=== PATIENT | female | born 1995 | race Caucasian/White ===

== ENCOUNTER 2017-07-10 02:14 | Inpatient (IN) | payer MEDICAID ==
[2017-07-10] MEDS ORDERED: Ampicillin 2 GM in Sodium Chloride 0.9% 100 ML IV ONE (04:35)
[2017-07-10] MEDS ORDERED: Lactated Ringers 1,000 ML IV ONE ×2 (05:22→05:30)
[2017-07-10] MEDS ORDERED: Bupivacaine 0.75%/D5W 2 ML Amp ISPINAL ONE (05:30)
[2017-07-10] MEDS ORDERED: Oxytocin 10 Units/1 ML SDV IV ONE (05:30)
[2017-07-10] MEDS ORDERED: fentaNYL 100 MCG/2 ML SDV IV ONE (05:30)
[2017-07-10] MEDS ORDERED: Carboprost Tromethamine 250 MCG/1 ML Amp IM ONE (05:30)
[2017-07-10] MEDS ORDERED: Succinylcholine 200 MG/10 ML MDV IV ONE (05:30)
[2017-07-10] MEDS ORDERED: Dexamethasone 4 MG/ML SDV IVPUSH ONE (05:30)
[2017-07-10] MEDS ORDERED: Azithromycin 500 MG Vial ONE (05:30)
[2017-07-10] MEDS ORDERED: fentaNYL 100 MCG/2 ML SDV ITHECAL ONE (05:30)
[2017-07-10] MEDS ORDERED: Sodium Chloride 0.9% 500 ML IV ONE (05:30)
[2017-07-10] MEDS ORDERED: Propofol 200 MG/20 ML SDV IV ONE (05:30)
[2017-07-10] MEDS ORDERED: Sodium Chloride 0.9% 10 ML SDV FLUSH SCH ×2 (05:30→23:45)
[2017-07-10] MEDS ORDERED: Hetastarch in NS 500 ML IV ONE (05:30)
[2017-07-10] MEDS ORDERED: Ondansetron 4 MG/2 ML SDV IVPUSH ONE (05:30)
[2017-07-10] MEDS ORDERED: Morphine 10 MG/ML Syringe IVPUSH ONE (05:30)
[2017-07-10] MEDS ORDERED: Azithromycin 500 MG in Sodium Chloride 0.9% 250 ML IV ONE (05:31)
[2017-07-10] MEDS ORDERED: EPINEPHrine 1:10,000 1 MG/10 ML Syringe ONE (06:12)
[2017-07-10] MEDS ORDERED: Sodium Chloride 0.9% 10 ML Syringe FLUSH ONE (06:12)
[2017-07-10] MEDS ORDERED: Carboprost Tromethamine 250 MCG/1 ML Amp ONE (06:28)
[2017-07-10] MEDS ORDERED: ePHEDrine 50 MG/ML SDV IVPUSH PRN ×2 (07:50→10:18)
[2017-07-10] MEDS ORDERED: Naloxone 0.4 MG/ML SDV IVPUSH PRN ×2 (07:50→10:18)
[2017-07-10] MEDS ORDERED: diphenhydrAMINE 50 MG/ML SDV IVPUSH PRN ×3 (07:50→10:18)
[2017-07-10] MEDS ORDERED: Ondansetron 4 MG/2 ML SDV IV PRN (07:50)
[2017-07-10] MEDS ORDERED: cefOXitin 2 GM in Sodium Chloride 0.9% 100 ML IV SCH (08:15)
--- NOTE | 2017-07-10 08:15 | PCM.OPNOTE ---
- General Post-Op/Procedure Note Date of Surgery/Procedure: 07/10/17 Operative Procedure(s): emergent c section Findings: term infant FRANKY presentation prolapsed cord cord knot Pre Op Diagnosis: cord prolapse with distress Post-Op Diagnosis: same. cord knot. demise of infant Anesthesia Technique: General ET Tube Primary Surgeon: Carlos Chaudhari Anesthesia Provider: Iqra Tompkins Pathology: term infant cord knot and cord prolapse demise of Fluid Replacement, Intraop: 2,800 (hepspan 400, rest crystal ) EBL in mLs: 1,200 Complications: demise of Condition: Good Free Text/Narrative:: see dictation
--- NOTE | 2017-07-10 08:37 | PCM.HP ---
H&P History of Present Illness - General Date of Service: 07/10/17 Admit Problem/Dx: Admission Diagnosis/Problem Admission Diagnosis/Problem complications Source of Information: Patient History Limitations: Reports: No Limitations - History of Present Illness Initial Comments - Free Text/Narative: This is a with a due date of 07/06/17 comes in with spontaneous rupture of membranes with meconium-stained and group B positive. Patient was having D cells that look like they were released. We were not able to leaf size picker her contractions because her body habitus. The we asked her when she had contractions and when they were done and her D cells would stop. She had an intrathecal. We started IV fluids and oxygen. Later she had what appeared to be some decelerations. The nurse checked her she first came in and she was about 8 cm. The nurse checked her when she had the later decelerations and there was a cord prolapse. She was given ampicillin 2 g. - Related Data Allergies/Adverse Reactions: Allergies Allergy/AdvReac Type Severity Reaction Status Date / Time No Known Allergies Allergy Verified 10/16/13 15:55 Home Medications: Home Meds Vits #93/Iron Fum/FA [ Formula Tablet] 1 each PO DAILY [History] Past Medical History Musculoskeletal History: Reports: Back Pain, Chronic Social & Family History - Family History Family Medical History: Noncontributory H&P Review of Systems - Review of Systems: Review Of Systems: See Below General: Reports: No Symptoms HEENT: Reports: No Symptoms Pulmonary: Reports: No Symptoms Cardiovascular: Reports: No Symptoms Gastrointestinal: Reports: Abdominal Pain Genitourinary: Reports: No Symptoms Musculoskeletal: Reports: No Symptoms Skin: Reports: No Symptoms Psychiatric: Reports: No Symptoms Neurological: Reports: No Symptoms Hematologic/Lymphatic: Reports: No Symptoms Immunologic: Reports: No Symptoms Exam - Exam Exam: See Below - Vital Signs Vital Signs: Last Vital Signs Temp 96.7 F 07/10/17 08:00 Pulse 94 07/10/17 07:35 Resp 16 07/10/17 08:05 BP 119/79 07/10/17 08:05 Pulse Ox 100 07/10/17 08:05 - Exam General: Alert, Oriented, Cooperative HEENT: Mucosa Moist & Altha, Posterior Pharynx Clear, TMs Clear Neck: Supple, Trachea Midline Lungs: Clear to Auscultation, Normal Respiratory Effort. No: Crackles, Rales, Rhonchi Cardiovascular: Regular Rate, Regular Rhythm, Normal S1, Normal S2. No: Systolic Murmur, Diastolic Murmur GI/Abdominal Exam: Normal Bowel Sounds, Soft, Other (Nontender but fundal pressure with contractions.) (Female) Exam: Other (Initially 8/70/-2. But at the in the vocal cord prolapse at 8/70/0.) Back Exam: Normal Inspection Extremities: Non-Tender, No Pedal Edema Skin: Warm, Dry, Intact Neuro Extensive - Mental Status: Alert, Oriented x3, Normal Mood/Affect, Normal Cognition, Memory Intact Neuro Extensive - Motor, Sensory, Reflexes: Normal Gait Psychiatric: Alert, Normal Mood *Q Meaningful Use (ADM) - VTE *Q VTE Criteria *Q: - Stroke *Q Stroke Criteria *Q: - AMI *Q AMI Criteria *Q: - Problem List (1) Umbilical cord prolapse in labor and delivery SNOMED Code(s): 998781731 ICD Code: O69.0XX0 - LABOR AND DELIVERY COMPLICATED BY PROLAPSE OF CORD, UNSP Status: Acute Current Visit: Yes Problem List Initiated/Reviewed/Updated: Yes Orders Last 24hrs: Active Orders 24 hr Category Date Time Status Admission Status [Patient Status] [ADT] Routine ADT 07/10/17 03:30 Active Ambulate [RC] PER UNIT ROUTINE Care 07/10/17 07:50 Active Communication Order [RC] Per Unit Routine Care 07/10/17 07:50 Active Communication Order [RC] Per Unit Routine Care 07/10/17 07:50 Active Communication Order [RC] Per Unit Routine Care 07/10/17 07:50 Active Intake and Output [RC] Q4HR Care 07/10/17 07:51 Active RT Incentive Spirometry [RC] Q2HWA Care 07/10/17 07:53 Active Urinary Catheter Assessment [RC] QSHIFT Care 07/10/17 07:50 Active Vital Signs [RC] Q4HR Care 07/10/17 07:50 Active Wound Care [RC] QSHIFT Care 07/10/17 07:50 Active Nothing Per Oral Diet [DIET] Diet 07/10/17 Lunch Active Pelvis 1V or 2V [CR] Routine Exams 07/10/17 07:09 Taken CBC WITH AUTO DIFF [HEME] Routine Lab 07/10/17 12:00 Ordered HYDROmorphone [Dilaudid] Med 07/10/17 07:50 Active 0.25 mg IV Q1H PRN Ketorolac [Toradol] Med 07/10/17 08:00 Active 30 mg IVPUSH Q8H Lactated Ringers [Ringers, Lactated] 1,000 ml Med 07/10/17 08:00 Active IV ASDIRECTED Naloxone [Narcan] Med 07/10/17 07:50 Active 0.1 mg IVPUSH ONETIME PRN Ondansetron [Zofran] Med 07/10/17 07:50 Active 4 mg IV Q4H PRN Sodium Chloride 0.9% [Normal Saline] Med 07/10/17 05:30 Active 10 ml FLUSH ASDIRECTED cefOXitin [Mefoxin] 2 gm Med 07/10/17 08:15 Active Sodium Chloride 0.9% [Normal Saline] 100 ml IV Q6H diphenhydrAMINE [Benadryl] Med 07/10/17 07:50 Active 25 mg IVPUSH Q6H PRN ePHEDrine [ePHEDrine Sulfate] Med 07/10/17 07:50 Active 5 mg IVPUSH ASDIRECTED PRN Assess Lochia [WOMSER] Per Unit Routine Oth 07/10/17 07:50 Ordered Assess Uterine Involution [WOMSER] Per Unit Routine Oth 07/10/17 07:50 Ordered Resuscitation Status Routine Resus Stat 07/10/17 07:50 Ordered Medication Orders Diphenhydramine HCl (Benadryl) 25 mg IVPUSH Q6H PRN PRN Reason: Itching or Nausea Ephedrine Sulfate (Ephedrine Sulfate) 5 mg IVPUSH ASDIRECTED PRN PRN Reason: Other Hydromorphone HCl (Dilaudid) 0.25 mg IV Q1H PRN PRN Reason: Pain (severe 7-10) Cefoxitin Sodium 2 gm/ Sodium (Chloride) 100 mls @ 200 mls/hr IV Q6H [facility] Lactated Ringer's (Ringers, Lactated) 1,000 mls @ 150 mls/hr IV ASDIRECTED [facility] Ketorolac Tromethamine (Toradol) 30 mg IVPUSH Q8H [facility] Stop: 07/15/17 07:54 Naloxone HCl (Narcan) 0.1 mg IVPUSH ONETIME PRN PRN Reason: Respiratory Depression Ondansetron HCl (Zofran) 4 mg IV Q4H PRN PRN Reason: Nausea/Vomiting Sodium Chloride (Normal Saline) 10 ml FLUSH ASDIRECTED [facility] Assessment/Plan Comment:: When the prolapse is discovered. I placed my fingers with a sterile glove to hold the baby's head up. Anesthesia, Dr. Restrepo, Dr. Chaudhari and the OR staff was called from her . Patient was taken down to the OR for section as I cut my hand pushing the head of to try to get the head off the cord. I did have to switch hands. Onetime miss which as I placed my figures in her rectum. Because my other hand was tired and had to get the head off the cord I did put my hand up there. I reported this to the surgeons of know that there was contamination. I had remained there until dissection was over. Please see delivery know.
[2017-07-10] MEDS: Ketorolac 30 MG/ML SDV IVPUSH SCH ×3 (08:42→23:29)
[2017-07-10] MEDS: Lactated Ringers 1,000 ML IV SCH ×2 (08:53→15:01)
[2017-07-10] MEDS: cefOXitin 2 GM in Sodium Chloride 0.9% 100 ML IV SCH ×3 (09:08→21:15)
[2017-07-10] MEDS ORDERED: Nalbuphine 10 MG/1 ML Vial IVPUSH PRN (10:18)
[2017-07-10] MEDS ORDERED: Scopolamine 1.5 MG Transdermal Patch TOP SCH (10:18)
[2017-07-10] MEDS ORDERED: Promethazine 25 MG/ML SDV IV PRN (10:18)
[2017-07-10] MEDS ORDERED: Naloxone 0.4 MG in Sodium Chloride 0.9% 100 ML IV PRN (10:18)
[2017-07-10] MEDS ORDERED: hydrOXYzine HCl 50 MG/ML SDV IM PRN ×2 (10:18)
[2017-07-10] MEDS: HYDROmorphone 2 MG/ML SDV IV PRN ×3 (13:44→21:21)
[2017-07-10] MEDS ORDERED: Sodium Chloride 0.9% 250 ML IV SCH (15:15)
--- NOTE | 2017-07-10 15:20 | PCM.SURGPN ---
- General Info Date of Service: 07/10/17 Date of Surgery/Procedure: 07/10/17 POD#: 0 Functional Status: Reports: Urinating (output has decreased HR up slightly ) - Review of Systems Pulmonary: Reports: No Symptoms Cardiovascular: Reports: No Symptoms Gastrointestinal: Reports: Abdominal Pain - Patient Data Vitals - Most Recent: Last Vital Signs Temp 36.8 C 07/10/17 13:45 Pulse 102 H 07/10/17 12:30 Resp 18 07/10/17 13:45 BP 126/71 07/10/17 13:45 Pulse Ox 99 07/10/17 13:45 Weight - Most Recent: 106.594 kg I&O - Last 24 Hours: Intake & Output 07/10/17 07/10/17 07/10/17 06:59 14:59 22:59 Intake Total 2800 Output Total 200 Balance 2600 Lab Results Last 24 Hrs: Laboratory Results - last 24 hr 07/10/17 Range/Units 12:00 WBC 17.6 H (4.5-12.0) X10-3/uL RBC 2.86 L (3.23-5.20) x10(6)uL Hgb 7.6 L (11.5-15.5) g/dL Hct 23.0 L (30.0-51.3) % MCV 80.5 (80-96) fL MCH 26.7 L (27.7-33.6) pg MCHC 33.2 (32.2-35.4) g/dL RDW 14.1 (11.5-15.5) % Plt Count 245 (125-369) X10(3)uL MPV 7.9 (7.4-10.4) fL Add Manual Diff Yes Neutrophils % (Manual) 88 H (46-82) % Band Neutrophils % 2 (0-6) % Lymphocytes % (Manual) 6 L (13-37) % Monocytes % (Manual) 4 (4-12) % Med Orders - Current: Current Medications Diphenhydramine HCl (Benadryl) 25 mg IVPUSH Q6H PRN PRN Reason: Itching or Nausea Diphenhydramine HCl (Benadryl) 25 mg IVPUSH ASDIRECTED PRN PRN Reason: SEVERE EXTRAPYRAMIDAL SYMP Diphenhydramine HCl (Benadryl) 25 mg IVPUSH ASDIRECTED PRN PRN Reason: PRURITUS Ephedrine Sulfate (Ephedrine Sulfate) 5 mg IVPUSH ASDIRECTED PRN PRN Reason: Other Ephedrine Sulfate (Ephedrine Sulfate) 5 mg IVPUSH ASDIRECTED PRN PRN Reason: HYPOTENSION Hydromorphone HCl (Dilaudid) 0.25 mg IV Q1H PRN PRN Reason: Pain (severe 7-10) Last Admin: 07/10/17 13:44 Dose: 0.25 mg Hydroxyzine HCl (Vistaril) 25 - 50 mg IM Q6H PRN PRN Reason: PRURITUS Hydroxyzine HCl (Vistaril) 25 - 50 mg IM Q4H PRN PRN Reason: N/V Lactated Ringer's (Ringers, Lactated) 1,000 mls @ 150 mls/hr IV ASDIRECTED [facility] Last Admin: 07/10/17 08:53 Dose: 150 mls/hr Cefoxitin Sodium 2 gm/ Sodium (Chloride) 100 mls @ 200 mls/hr IV Q6H [facility] Last Admin: 07/10/17 09:08 Dose: 200 mls/hr Naloxone HCl 0.4 mg/ Sodium (Chloride) 101 mls @ 25 mls/hr IV ASDIRECTED PRN PRN Reason: RESPIRATORY STATUS Sodium Chloride (Normal Saline) 250 mls @ 100 mls/hr IV ASDIRECTED [facility] Ketorolac Tromethamine (Toradol) 30 mg IVPUSH Q8H [facility] Stop: 07/15/17 07:54 Last Admin: 07/10/17 08:42 Dose: 30 mg Miscellaneous Information (Remove Patch) 1 ea TRDERM ASDIRECTED [facility] Nalbuphine HCl (Nubain) 10 mg IVPUSH Q1H PRN PRN Reason: PRURITUS Naloxone HCl (Narcan) 0.1 mg IVPUSH ONETIME PRN PRN Reason: Respiratory Depression Naloxone HCl (Narcan) 0.1 mg IVPUSH ASDIRECTED PRN PRN Reason: RESPIRATROY STATUS Ondansetron HCl (Zofran) 4 mg IV Q4H PRN PRN Reason: Nausea/Vomiting Promethazine HCl (Phenergan) 0 mg IV Q4H PRN PRN Reason: N/V Scopolamine (Transderm-Scop) 1.5 mg TOP ONETIME [facility] Last Admin: 07/10/17 05:00 Dose: 1.5 mg Sodium Chloride (Normal Saline) 10 ml FLUSH ASDIRECTED [facility] Discontinued Medications Ampicillin Sodium (Ampicillin) Confirm Administered Dose 2,000 mg .ROUTE .STK- MED ONE Stop: 07/10/17 04:36 Last Admin: 07/10/17 09:48 Dose: Not Given Azithromycin (Zithromax) Confirm Administered Dose 500 mg .ROUTE .STK-MED ONE Stop: 07/10/17 05:31 Last Admin: 07/10/17 11:00 Dose: Not Given Carboprost Tromethamine (Hemabate Ds) 250 mcg .XX .STK-MED ONE Stop: 07/10/17 06:29 Last Admin: 07/10/17 06:28 Dose: 250 mcg Lactated Ringer's (Ringers, Lactated) 1,000 mls @ 999 mls/hr IV BOLUS ONE Stop: 07/10/17 06:22 Last Admin: 07/10/17 04:15 Dose: 999 mls/hr Azithromycin 500 mg/ Sodium (Chloride) 250 mls @ 250 mls/hr IV ONETIME ONE Stop: 07/10/17 06:30 Last Admin: 07/10/17 10:59 Dose: 250 mls/hr Cefoxitin Sodium 2 gm/ Sodium (Chloride) 100 mls @ 200 mls/hr IV Q6H DEJAN Ampicillin Sodium 2 gm/ Sodium (Chloride) 100 mls @ 200 mls/hr IV ONETIME ONE Stop: 07/10/17 05:04 Last Admin: 07/10/17 04:35 Dose: 200 mls/hr - Exam Wound/Incisions: Drainage (some staining not unexpected with the saline soaked gauze. ) General: Alert, Oriented Lungs: Clear to Auscultation, Normal Respiratory Effort Cardiovascular: Regular Rate, Tachycardia GI/Abdominal Exam: Normal Bowel Sounds, Soft, Tender (along incision ) - Problem List & Annotations (1) Umbilical cord prolapse in labor and delivery SNOMED Code(s): 763530761 Code(s): O69.0XX0 - LABOR AND DELIVERY COMPLICATED BY PROLAPSE OF CORD, UNSP Status: Acute Current Visit: Yes Qualifiers: Fetus number: single or unspecified fetus Qualified Code(s): O69.0XX0 - Labor and delivery complicated by prolapse of cord, not applicable or unspecified (2) S/P emergency SNOMED Code(s): 197979345, 870344646 Code(s): Z98.891 - HISTORY OF UTERINE SCAR FROM PREVIOUS SURGERY Status: Acute Current Visit: Yes Onset Date: 07/10/17 - Problem List Review Problem List Initiated/Reviewed/Updated: Yes - My Orders Last 24 Hours: Active Orders 24 hr Category Date Time Status Admission Status [Patient Status] [ADT] Routine ADT 07/10/17 03:30 Active Ambulate [RC] PER UNIT ROUTINE Care 07/10/17 07:50 Active Communication Order [RC] Per Unit Routine Care 07/10/17 07:50 Active Communication Order [RC] Per Unit Routine Care 07/10/17 07:50 Active Communication Order [RC] Per Unit Routine Care 07/10/17 07:50 Active Intake and Output [RC] Q4HR Care 07/10/17 07:51 Active RT Incentive Spirometry [RC] Q2HWA Care 07/10/17 07:53 Active Urinary Catheter Assessment [RC] QSHIFT Care 07/10/17 07:50 Active Vital Signs [RC] Q4HR Care 07/10/17 07:50 Active Wound Care [RC] QSHIFT Care 07/10/17 07:50 Active Nothing Per Oral Diet [DIET] Diet 07/10/17 Lunch Active Pelvis 1V or 2V [CR] Routine Exams 07/10/17 07:09 Taken BASIC METABOLIC PANEL,BMP [CHEM] AM Lab 07/11/17 05:11 Ordered CBC WITH AUTO DIFF [HEME] AM Lab 07/11/17 05:11 Ordered HGB [HEMOGLOBIN] [HEME] Routine Lab 07/10/17 21:00 Ordered RED BLOOD CELLS LP [BBK] Routine Lab 07/10/17 15:11 Ordered TYPE AND SCREEN [BBK] Routine Lab 07/10/17 15:11 Ordered HYDROmorphone [Dilaudid] Med 07/10/17 07:50 Active 0.25 mg IV Q1H PRN Ketorolac [Toradol] Med 07/10/17 08:00 Active 30 mg IVPUSH Q8H Lactated Ringers [Ringers, Lactated] 1,000 ml Med 07/10/17 08:00 Active IV ASDIRECTED Nalbuphine [Nubain] Med 07/10/17 10:18 Active 10 mg IVPUSH Q1H PRN Naloxone [Narcan] Med 07/10/17 10:18 Active 0.1 mg IVPUSH ASDIRECTED PRN Naloxone [Narcan] Med 07/10/17 07:50 Active 0.1 mg IVPUSH ONETIME PRN Naloxone [Narcan] 0.4 mg Med 07/10/17 10:18 Active Sodium Chloride 0.9% [Normal Saline] 100 ml IV ASDIRECTED Ondansetron [Zofran] Med 07/10/17 07:50 Active 4 mg IV Q4H PRN Promethazine [Phenergan] Med 07/10/17 10:18 Active 0 mg IV Q4H PRN Remove Patch Med 07/10/17 10:18 Active 1 ea TRDERM ASDIRECTED Scopolamine [Transderm-Scop] Med 07/10/17 10:18 Active 1.5 mg TOP ONETIME Sodium Chloride 0.9% [Normal Saline] Med 07/10/17 05:30 Active 10 ml FLUSH ASDIRECTED Sodium Chloride 0.9% [Normal Saline] 250 ml Med 07/10/17 15:15 Ordered IV ASDIRECTED cefOXitin [Mefoxin] 2 gm Med 07/10/17 09:00 Active Sodium Chloride 0.9% [Normal Saline] 100 ml IV Q6H diphenhydrAMINE [Benadryl] Med 07/10/17 10:18 Active 25 mg IVPUSH ASDIRECTED PRN diphenhydrAMINE [Benadryl] Med 07/10/17 10:18 Active 25 mg IVPUSH ASDIRECTED PRN diphenhydrAMINE [Benadryl] Med 07/10/17 07:50 Active 25 mg IVPUSH Q6H PRN ePHEDrine [ePHEDrine Sulfate] Med 07/10/17 07:50 Active 5 mg IVPUSH ASDIRECTED PRN ePHEDrine [ePHEDrine Sulfate] Med 07/10/17 10:18 Active 5 mg IVPUSH ASDIRECTED PRN hydrOXYzine HCl [Vistaril] Med 07/10/17 10:18 Active 25 - 50 mg IM Q4H PRN hydrOXYzine HCl [Vistaril] Med 07/10/17 10:18 Active 25 - 50 mg IM Q6H PRN Assess Lochia [WOMSER] Per Unit Routine Oth 07/10/17 07:50 Ordered Assess Uterine Involution [WOMSER] Per Unit Routine Oth 07/10/17 07:50 Ordered Transfuse PRBC [Transfuse Red Blood Cells] [COMM] Ot 07/10/17 15:11 Ordered Routine Resuscitation Status Routine Resus Stat 07/10/17 07:50 Ordered Medication Orders Diphenhydramine HCl (Benadryl) 25 mg IVPUSH Q6H PRN PRN Reason: Itching or Nausea Diphenhydramine HCl (Benadryl) 25 mg IVPUSH ASDIRECTED PRN PRN Reason: SEVERE EXTRAPYRAMIDAL SYMP Diphenhydramine HCl (Benadryl) 25 mg IVPUSH ASDIRECTED PRN PRN Reason: PRURITUS Ephedrine Sulfate (Ephedrine Sulfate) 5 mg IVPUSH ASDIRECTED PRN PRN Reason: Other Ephedrine Sulfate (Ephedrine Sulfate) 5 mg IVPUSH ASDIRECTED PRN PRN Reason: HYPOTENSION Hydromorphone HCl (Dilaudid) 0.25 mg IV Q1H PRN PRN Reason: Pain (severe 7-10) Last Admin: 07/10/17 13:44 Dose: 0.25 mg Hydroxyzine HCl (Vistaril) 25 - 50 mg IM Q6H PRN PRN Reason: PRURITUS Hydroxyzine HCl (Vistaril) 25 - 50 mg IM Q4H PRN PRN Reason: N/V Lactated Ringer's (Ringers, Lactated) 1,000 mls @ 150 mls/hr IV ASDIRECTED [facility] Last Admin: 07/10/17 08:53 Dose: 150 mls/hr Cefoxitin Sodium 2 gm/ Sodium (Chloride) 100 mls @ 200 mls/hr IV Q6H [facility] Last Admin: 07/10/17 09:08 Dose: 200 mls/hr Naloxone HCl 0.4 mg/ Sodium (Chloride) 101 mls @ 25 mls/hr IV ASDIRECTED PRN PRN Reason: RESPIRATORY STATUS Sodium Chloride (Normal Saline) 250 mls @ 100 mls/hr IV ASDIRECTED [facility] Ketorolac Tromethamine (Toradol) 30 mg IVPUSH Q8H [facility] Stop: 07/15/17 07:54 Last Admin: 07/10/17 08:42 Dose: 30 mg Miscellaneous Information (Remove Patch) 1 ea TRDERM ASDIRECTED [facility] Nalbuphine HCl (Nubain) 10 mg IVPUSH Q1H PRN PRN Reason: PRURITUS Naloxone HCl (Narcan) 0.1 mg IVPUSH ONETIME PRN PRN Reason: Respiratory Depression Naloxone HCl (Narcan) 0.1 mg IVPUSH ASDIRECTED PRN PRN Reason: RESPIRATROY STATUS Ondansetron HCl (Zofran) 4 mg IV Q4H PRN PRN Reason: Nausea/Vomiting Promethazine HCl (Phenergan) 0 mg IV Q4H PRN PRN Reason: N/V Scopolamine (Transderm-Scop) 1.5 mg TOP ONETIME [facility] Last Admin: 07/10/17 05:00 Dose: 1.5 mg Sodium Chloride (Normal Saline) 10 ml FLUSH ASDIRECTED [facility] - Assessment Assessment (Free Text/Narrative):: will transfuse as she appears to be sx. - Plan Plan (Free Text/Narrative):: 1 unit of PRBC continue current iv fluid recheck labs tonight and in am.
[2017-07-11] MEDS: HYDROmorphone 2 MG/ML SDV IV PRN ×6 (00:36→21:43)
[2017-07-11] MEDS ORDERED: cefOXitin 1 GM Vial ONE (02:50)
[2017-07-11] MEDS ORDERED: Sodium Chloride 0.9% 100 ML ONE (02:52)
[2017-07-11] MEDS: Lactated Ringers 1,000 ML IV SCH (03:12)
[2017-07-11] MEDS: cefOXitin 2 GM in Sodium Chloride 0.9% 100 ML IV SCH (03:16)
--- NOTE | 2017-07-11 07:51 | PCM.PNPP ---
- General Info Date of Service: 07/11/17 Functional Status: Reports: Pain Controlled, Urinating (out put 150 ml q 4 hr) - Review of Systems General: Reports: No Symptoms, Fatigue Cardiovascular: Reports: No Symptoms Gastrointestinal: Reports: No Symptoms - Patient Data Vital Signs - Most Recent: Last Vital Signs Temp 37.1 C 07/11/17 04:00 Pulse 114 H 07/11/17 04:00 Resp 16 07/11/17 04:00 BP 118/64 07/11/17 04:00 Pulse Ox 100 07/11/17 04:00 Weight - Most Recent: 106.594 kg I&O - Last 24 Hours: Intake & Output 07/10/17 07/11/17 07/11/17 22:59 06:59 14:59 Intake Total 412 1817 Output Total 225 300 Balance 187 1517 Lab Results - Last 24 Hours: Laboratory Results - last 24 hr 07/10/17 07/10/17 07/10/17 Range/Units 06:25 12:00 21:00 WBC 17.6 H (4.5-12.0) X10-3/uL RBC 2.86 L (3.23-5.20) x10(6)uL Hgb 7.6 L 7.9 L (11.5-15.5) g/dL Hct 23.0 L (30.0-51.3) % MCV 80.5 (80-96) fL MCH 26.7 L (27.7-33.6) pg MCHC 33.2 (32.2-35.4) g/dL RDW 14.1 (11.5-15.5) % Plt Count 245 (125-369) X10(3)uL MPV 7.9 (7.4-10.4) fL Neut % (Auto) (46-82) % Lymph % (Auto) (13-37) % [place] % (Auto) (4-12) % Eos % (Auto) (1.0-5.0) % Baso % (Auto) (0-2) % Neut # (Auto) (1.6-8.3) # Lymph # (Auto) (0.6-5.0) # [place] # (Auto) (0.0-1.3) # Eos # (Auto) (0.0-0.8) # Baso # (Auto) (0.0-0.2) # Add Manual Diff Yes Neutrophils % (Manual) 88 H (46-82) % Band Neutrophils % 2 (0-6) % Lymphocytes % (Manual) 6 L (13-37) % Monocytes % (Manual) 4 (4-12) % Sodium (135-145) mmol/L Potassium (3.5-5.3) mmol/L Chloride (100-110) mmol/L Carbon Dioxide (21-32) mmol/L BUN (7-18) mg/dL Creatinine (0.55-1.02) mg/dL Est Cr Clr Drug Dosing mL/min Estimated GFR (MDRD) (>60) BUN/Creatinine Ratio (9-20) Glucose (80-116) mg/dL Calcium (8.6-10.2) mg/dL Blood Type O POSITIVE Gel Antibody Screen Negative Crossmatch See Detail 07/11/17 07/11/17 Range/Units 07:00 07:00 WBC 15.7 H (4.5-12.0) X10-3/uL RBC 2.88 L (3.23-5.20) x10(6)uL Hgb 7.7 L (11.5-15.5) g/dL Hct 23.1 L (30.0-51.3) % MCV 80.1 (80-96) fL MCH 26.8 L (27.7-33.6) pg MCHC 33.5 (32.2-35.4) g/dL RDW 14.6 (11.5-15.5) % Plt Count 185 (125-369) X10(3)uL MPV 8.0 (7.4-10.4) fL Neut % (Auto) 76.0 (46-82) % Lymph % (Auto) 14.6 (13-37) % [place] % (Auto) 8.0 (4-12) % Eos % (Auto) 0 L (1.0-5.0) % Baso % (Auto) 1 (0-2) % Neut # (Auto) 11.9 H (1.6-8.3) # Lymph # (Auto) 2.3 (0.6-5.0) # [place] # (Auto) 1.3 (0.0-1.3) # Eos # (Auto) 0.0 (0.0-0.8) # Baso # (Auto) 0.2 (0.0-0.2) # Add Manual Diff Neutrophils % (Manual) (46-82) % Band Neutrophils % (0-6) % Lymphocytes % (Manual) (13-37) % Monocytes % (Manual) (4-12) % Sodium 140 (135-145) mmol/L Potassium 4.0 (3.5-5.3) mmol/L Chloride 107 (100-110) mmol/L Carbon Dioxide 26 (21-32) mmol/L BUN 9 (7-18) mg/dL Creatinine 0.9 (0.55-1.02) mg/dL Est Cr Clr Drug Dosing 77.55 mL/min Estimated GFR (MDRD) > 60 (>60) BUN/Creatinine Ratio 10.0 (9-20) Glucose 90 (80-116) mg/dL Calcium 7.2 L (8.6-10.2) mg/dL Blood Type Gel Antibody Screen Crossmatch Med Orders - Current: Current Medications Diphenhydramine HCl (Benadryl) 25 mg IVPUSH Q6H PRN PRN Reason: Itching or Nausea Diphenhydramine HCl (Benadryl) 25 mg IVPUSH ASDIRECTED PRN PRN Reason: SEVERE EXTRAPYRAMIDAL SYMP Diphenhydramine HCl (Benadryl) 25 mg IVPUSH ASDIRECTED PRN PRN Reason: PRURITUS Ephedrine Sulfate (Ephedrine Sulfate) 5 mg IVPUSH ASDIRECTED PRN PRN Reason: Other Ephedrine Sulfate (Ephedrine Sulfate) 5 mg IVPUSH ASDIRECTED PRN PRN Reason: HYPOTENSION Hydromorphone HCl (Dilaudid) 0.25 mg IV Q1H PRN PRN Reason: Pain (severe 7-10) Last Admin: 07/11/17 06:45 Dose: 0.25 mg Hydroxyzine HCl (Vistaril) 25 - 50 mg IM Q6H PRN PRN Reason: PRURITUS Hydroxyzine HCl (Vistaril) 25 - 50 mg IM Q4H PRN PRN Reason: N/V Lactated Ringer's (Ringers, Lactated) 1,000 mls @ 150 mls/hr IV ASDIRECTED DEJAN Last Admin: 07/11/17 03:12 Dose: 150 mls/hr Cefoxitin Sodium 2 gm/ Sodium (Chloride) 100 mls @ 200 mls/hr IV Q6H [facility] Last Admin: 07/11/17 03:16 Dose: 200 mls/hr Naloxone HCl 0.4 mg/ Sodium (Chloride) 101 mls @ 25 mls/hr IV ASDIRECTED PRN PRN Reason: RESPIRATORY STATUS Sodium Chloride (Normal Saline) 250 mls @ 100 mls/hr IV ASDIRECTED [facility] Ketorolac Tromethamine (Toradol) 30 mg IVPUSH Q8H [facility] Stop: 07/15/17 07:54 Last Admin: 07/10/17 23:29 Dose: 30 mg Miscellaneous Information (Remove Patch) 1 ea TRDERM ASDIRECTED [facility] Nalbuphine HCl (Nubain) 10 mg IVPUSH Q1H PRN PRN Reason: PRURITUS Naloxone HCl (Narcan) 0.1 mg IVPUSH ONETIME PRN PRN Reason: Respiratory Depression Naloxone HCl (Narcan) 0.1 mg IVPUSH ASDIRECTED PRN PRN Reason: RESPIRATROY STATUS Ondansetron HCl (Zofran) 4 mg IV Q4H PRN PRN Reason: Nausea/Vomiting Promethazine HCl (Phenergan) 0 mg IV Q4H PRN PRN Reason: N/V Scopolamine (Transderm-Scop) 1.5 mg TOP ONETIME [facility] Last Admin: 07/10/17 05:00 Dose: 1.5 mg Sodium Chloride (Normal Saline) 10 ml FLUSH ASDIRECTED [facility] Sodium Chloride (Normal Saline) 10 ml FLUSH ASDIRECTED [facility] Discontinued Medications Ampicillin Sodium (Ampicillin) Confirm Administered Dose 2,000 mg .ROUTE .STK- MED ONE Stop: 07/10/17 04:36 Last Admin: 07/10/17 09:48 Dose: Not Given Azithromycin (Zithromax) Confirm Administered Dose 500 mg .ROUTE .STK-MED ONE Stop: 07/10/17 05:31 Last Admin: 07/10/17 11:00 Dose: Not Given Carboprost Tromethamine (Hemabate Ds) 250 mcg .XX .STK-MED ONE Stop: 07/10/17 06:29 Last Admin: 07/10/17 06:28 Dose: 250 mcg Cefoxitin Sodium (Mefoxin) Confirm Administered Dose 2 gm .ROUTE .STK-MED ONE Stop: 07/11/17 02:51 Last Admin: 07/11/17 03:15 Dose: Not Given Lactated Ringer's (Ringers, Lactated) 1,000 mls @ 999 mls/hr IV BOLUS ONE Stop: 07/10/17 06:22 Last Admin: 07/10/17 04:15 Dose: 999 mls/hr Azithromycin 500 mg/ Sodium (Chloride) 250 mls @ 250 mls/hr IV ONETIME ONE Stop: 07/10/17 06:30 Last Admin: 07/10/17 10:59 Dose: 250 mls/hr Cefoxitin Sodium 2 gm/ Sodium (Chloride) 100 mls @ 200 mls/hr IV Q6H DEJAN Last Admin: 07/10/17 09:00 Dose: Not Given Ampicillin Sodium 2 gm/ Sodium (Chloride) 100 mls @ 200 mls/hr IV ONETIME ONE Stop: 07/10/17 05:04 Last Admin: 07/10/17 04:35 Dose: 200 mls/hr Sodium Chloride (Normal Saline) Confirm Administered Dose 100 mls @ as directed .ROUTE .STK-MED ONE Stop: 07/11/17 02:53 Last Admin: 07/11/17 03:16 Dose: Not Given - Infant Interaction Infant Disposition, : still in room Support Person: Significant Other - Recovery Exam Fundal Tone: Firm Fundal Level: At Umbilicus Fundal Placement: Midline Lochia Amount: Small Lochia Color: Rubra/Red Perineum Description: Intact, Minimal Bruising/Swelling Episiotomy/Laceration: None Bladder Status: Indwelling Catheter in Place Urinary Elimination: Indwelling Catheter - Exam General: Alert, Oriented, Cooperative Lungs: Clear to Auscultation, Normal Respiratory Effort Cardiovascular: Regular Rate, Regular Rhythm GI/Abdominal Exam: Soft Wound/Incisions: No Drainage, Other (dressing changed without difficulty. wound is clean and dry ). No: Erythema - Problem List & Annotations (1) Umbilical cord prolapse in labor and delivery SNOMED Code(s): 025683322 Code(s): O69.0XX0 - LABOR AND DELIVERY COMPLICATED BY PROLAPSE OF CORD, UNSP Status: Acute Current Visit: Yes Qualifiers: Fetus number: single or unspecified fetus Qualified Code(s): O69.0XX0 - Labor and delivery complicated by prolapse of cord, not applicable or unspecified (2) S/P emergency SNOMED Code(s): 749793540, 912464829 Code(s): Z98.891 - HISTORY OF UTERINE SCAR FROM PREVIOUS SURGERY Status: Acute Current Visit: Yes Onset Date: 07/10/17 - Problem List Review Problem List Initiated/Reviewed/Updated: Yes - My Orders Last 24 Hours: My Active Orders 07/10/17 07:09 Pelvis 1V or 2V [CR] Routine 07/10/17 07:50 Ambulate [RC] PER UNIT ROUTINE Communication Order [RC] Per Unit Routine Communication Order [RC] Per Unit Routine Communication Order [RC] Per Unit Routine Urinary Catheter Assessment [RC] 06,14,22 Vital Signs [RC] Q4HR Wound Care [RC] 00,08,16 HYDROmorphone [Dilaudid] 0.25 mg IV Q1H PRN Naloxone [Narcan] 0.1 mg IVPUSH ONETIME PRN Ondansetron [Zofran] 4 mg IV Q4H PRN diphenhydrAMINE [Benadryl] 25 mg IVPUSH Q6H PRN ePHEDrine [ePHEDrine Sulfate] 5 mg IVPUSH ASDIRECTED PRN Assess Lochia [WOMSER] Per Unit Routine Assess Uterine Involution [WOMSER] Per Unit Routine Resuscitation Status Routine 07/10/17 07:51 Intake and Output [RC] 00,04,08,12,16,20,00 07/10/17 07:53 RT Incentive Spirometry [RC] Q2HWA 07/10/17 08:00 Ketorolac [Toradol] 30 mg IVPUSH Q8H Lactated Ringers [Ringers, Lactated] 1,000 ml IV ASDIRECTED 07/10/17 09:00 cefOXitin [Mefoxin] 2 gm Sodium Chloride 0.9% [Normal Saline] 100 ml IV Q6H 07/10/17 15:15 Sodium Chloride 0.9% [Normal Saline] 250 ml IV ASDIRECTED 07/10/17 15:45 SCD [Sequential Compression Device] [OM.PC] Routine 07/10/17 21:58 Transfuse PRBC [Transfuse Red Blood Cells] [COMM] Routine 07/10/17 23:45 Sodium Chloride 0.9% [Normal Saline] 10 ml FLUSH ASDIRECTED 07/10/17 Lunch Nothing Per Oral Diet [DIET] - Assessment Assessment:: hgb has not really bumped with transfusions she color is better exam is clinically unremarkable. - Plan Plan:: will continue IVF and chanel during the day will ambulate pt
[2017-07-11] MEDS ORDERED: Sodium Chloride 0.9% 10 ML Syringe FLUSH SCH ×2 (08:15)
[2017-07-11] MEDS: D5 1/2 NS w/ 20 mEq/L KCl 1,000 ML IV SCH ×3 (08:31→22:00)
[2017-07-11] MEDS: Ketorolac 30 MG/ML SDV IVPUSH SCH ×2 (09:04→15:38)
[2017-07-11] MEDS: cefOXitin 2 GM Vial IV SCH ×3 (09:06→20:54)
--- NOTE | 2017-07-11 11:15 | OR ---
DATE OF OPERATION: 07/10/2017 SURGEON: Carlos Chaudhari MD PROCEDURE PERFORMED: Emergent section. ASSISTANTS: Dr. Bridger Restrepo and Dr. Cricket Rosa. PREOPERATIVE DIAGNOSIS: Prolapsed cord with distress. POSTOPERATIVE DIAGNOSIS: Prolapsed cord, cord knot, and demise of the . INDICATIONS FOR PROCEDURE: This is a 22-year-old white female, who is a G2, P1, apparently presented earlier this morning with spontaneous rupture of membranes. She was noted to have decelerations during labor, and on examination was noted to have prolapse of her cord. Dr. Rosa, the attending physician for the delivery immediately prevented further progression of the infant's head by manual means. Crew was called and emergent was performed. DESCRIPTION OF OPERATION: After an excellent emergent general endotracheal anesthetic was administered, the patient was prepped in the usual sterile manner. An incision was made approximately a centimeter above the symphysis pubis, going from the anterior axillary line to anterior axillary line. The underlying subcutaneous fat was divided sharply and the fascia was exposed. An incision was made through the fascia, carried out laterally to the external oblique muscle layer. The fascia was grasped and the planes were developed sharply and bluntly, superiorly and inferiorly. The peritoneum was opened. The bladder was reduced. A bladder flap was developed. There was urine in the bladder as there was no time to insert the Marquez catheter and it was impossible with Dr. Rosa applying pressure to the child's head. An incision was made in the uterus. The uterus was opened. The child was noted to be having a FRANKY presentation. The head was delivered as was the anterior and posterior shoulders. A cord knot was also noted. The cord was clamped, divided, and the infant was passed off the field for immediate resuscitation. The placenta was delivered. Thin filmy remnants of the placenta were also removed. The uterus was closed in two layers, #1 Vicryl for the inner layer which was a locking continuous suture followed by a Lembert suture. There was a superior tear that was also closed and incorporated in our suture line. After inspecting our line and after closure with a Lembert suture, a small bleeding point was noted on the superior aspect of the midline of the uterus which was controlled with figure-of- eight 3-0 Vicryl. The uterus was still noted to be a little flaccid. 250 mcg was given in intrauterine injection which along with the IV Pitocin that she was receiving resulted in the uterus firming up very nicely. The wound was irrigated and the uterus was returned to normal anatomic position. The fascia was closed with a running 2-0 Vicryl. The skin was approximated with interrupted 2-0 Prolene, and the wound was packed. Prior to packing the wound, an x-ray was obtained via KUB to check for any retained instruments or dressing. This was done as preoperative count was not possible due to the emergent nature of the procedure. A Marquez catheter was also placed at the end of the procedure as well. The patient tolerated the procedure well, and was taken to the recovery room in good condition. Estimated blood loss was 1200 mL. Fluid replacement intraoperatively was 2800 mL, and 400 mL of that was Hespan. /[id number] /MODL
--- NOTE | 2017-07-11 12:41 | CR ---
INDICATION: . Checking for post-surgical - post emergency . PELVIS: A single frontal view of the pelvis was obtained. There is some separation at the pubic symphysis. What appears to be a catheter is noted in place overlying the area of the urinary bladder. Otherwise, a radiopaque foreign body is not identified. The pattern of gas and feces is nonspecific. Density in the pelvis and mid lower abdomen is compatible with post- uterus. IMPRESSION: No radiopaque foreign body identified. [facility]
--- NOTE | 2017-07-11 16:24 | PCM.SN ---
- Free Text/Narrative Note: Has passed gas ambulated. lungs cta heart rrr abd soft bs better. assess return of bowel function advance diet po pain pills repeat cbc in am.
[2017-07-11] MEDS: Acetaminophen/HYDROcodone 325-5 MG Tab PO PRN (17:59)
[2017-07-12] MEDS: Ketorolac 30 MG/ML SDV IVPUSH SCH ×2 (00:13→08:34)
[2017-07-12] MEDS: D5 1/2 NS w/ 20 mEq/L KCl 1,000 ML IV SCH ×2 (01:36→05:00)
[2017-07-12] MEDS: cefOXitin 2 GM Vial IV SCH ×2 (03:37→08:44)
[2017-07-12] MEDS ORDERED: Bisacodyl 10 MG Supp RECTAL ONE (10:37)
[2017-07-12] MEDS ORDERED: Ibuprofen 600 MG Tab PO PRN (10:37)
--- NOTE | 2017-07-12 10:42 | PCM.PNPP ---
- General Info Date of Service: 07/12/17 Functional Status: Reports: Pain Controlled, Tolerating Diet, Ambulating, Urinating, Incentive Spirometry. Denies: New Symptoms - Review of Systems Gastrointestinal: Reports: Flatus - Patient Data Vital Signs - Most Recent: Last Vital Signs Temp 36.6 C 07/12/17 08:10 Pulse 91 07/12/17 08:10 Resp 16 07/12/17 08:10 BP 96/66 07/12/17 08:10 Pulse Ox 99 07/12/17 08:10 Weight - Most Recent: 106.594 kg I&O - Last 24 Hours: Intake & Output 07/11/17 07/12/17 07/12/17 22:59 06:59 14:59 Intake Total 1212 1036 Output Total 1650 1000 900 Balance -438 36 -900 Lab Results - Last 24 Hours: Laboratory Results - last 24 hr 07/12/17 Range/Units 06:45 WBC 12.7 H (4.5-12.0) X10-3/uL RBC 2.69 L (3.23-5.20) x10(6)uL Hgb 7.2 L (11.5-15.5) g/dL Hct 21.6 L* (30.0-51.3) % MCV 80.3 (80-96) fL MCH 26.8 L (27.7-33.6) pg MCHC 33.4 (32.2-35.4) g/dL RDW 14.5 (11.5-15.5) % Plt Count 199 (125-369) X10(3)uL MPV 7.6 (7.4-10.4) fL Neut % (Auto) 73.3 (46-82) % Lymph % (Auto) 17.9 (13-37) % [place] % (Auto) 7.3 (4-12) % Eos % (Auto) 1 (1.0-5.0) % Baso % (Auto) 1 (0-2) % Neut # (Auto) 9.3 H (1.6-8.3) # Lymph # (Auto) 2.3 (0.6-5.0) # [place] # (Auto) 0.9 (0.0-1.3) # Eos # (Auto) 0.1 (0.0-0.8) # Baso # (Auto) 0.1 (0.0-0.2) # Med Orders - Current: Current Medications Hydrocodone Bitart/Acetaminophen ([place] 325-5 Mg) 1 tab PO Q4H PRN PRN Reason: Pain Last Admin: 07/11/17 17:59 Dose: 1 tab Bisacodyl (Dulcolax) 10 mg RECTAL ONETIME ONE Stop: 07/12/17 10:38 Naloxone HCl 0.4 mg/ Sodium (Chloride) 101 mls @ 25 mls/hr IV ASDIRECTED PRN PRN Reason: RESPIRATORY STATUS Potassium Chloride/Dextrose/Sod Cl (D5 1/2 Ns W/ 20 Meq/L Kcl) 1,000 mls @ 75 mls/hr IV Q7H DEJAN Stop: 07/12/17 12:15 Last Admin: 07/12/17 05:00 Dose: Not Given Ibuprofen (Motrin) 600 mg PO Q6H PRN PRN Reason: Pain Miscellaneous Information (Remove Patch) 1 ea TRDERM ASDIRECTED DEJAN Nalbuphine HCl (Nubain) 10 mg IVPUSH Q1H PRN PRN Reason: PRURITUS Naloxone HCl (Narcan) 0.1 mg IVPUSH ASDIRECTED PRN PRN Reason: RESPIRATROY STATUS Ondansetron HCl (Zofran) 4 mg IV Q4H PRN PRN Reason: Nausea/Vomiting Multivit/Folic Acid/Iron (-U) 1 each PO DAILY DEJAN Discontinued Medications Ampicillin Sodium (Ampicillin) Confirm Administered Dose 2,000 mg .ROUTE .STK- MED ONE Stop: 07/10/17 04:36 Last Admin: 07/10/17 09:48 Dose: Not Given Azithromycin (Zithromax) Confirm Administered Dose 500 mg .ROUTE .STK-MED ONE Stop: 07/10/17 05:31 Last Admin: 07/10/17 11:00 Dose: Not Given Carboprost Tromethamine (Hemabate Ds) 250 mcg .XX .STK-MED ONE Stop: 07/10/17 06:29 Last Admin: 07/10/17 06:28 Dose: 250 mcg Cefoxitin Sodium (Mefoxin) Confirm Administered Dose 2 gm .ROUTE .STK-MED ONE Stop: 07/11/17 02:51 Last Admin: 07/11/17 03:15 Dose: Not Given Cefoxitin Sodium (Mefoxin) 2 gm IV Q6H [facility] Last Admin: 07/12/17 08:44 Dose: 2 gm Diphenhydramine HCl (Benadryl) 25 mg IVPUSH Q6H PRN PRN Reason: Itching or Nausea Diphenhydramine HCl (Benadryl) 25 mg IVPUSH ASDIRECTED PRN PRN Reason: SEVERE EXTRAPYRAMIDAL SYMP Diphenhydramine HCl (Benadryl) 25 mg IVPUSH ASDIRECTED PRN PRN Reason: PRURITUS Ephedrine Sulfate (Ephedrine Sulfate) 5 mg IVPUSH ASDIRECTED PRN PRN Reason: Other Ephedrine Sulfate (Ephedrine Sulfate) 5 mg IVPUSH ASDIRECTED PRN PRN Reason: HYPOTENSION Hydromorphone HCl (Dilaudid) 0.25 mg IV Q1H PRN PRN Reason: Pain (severe 7-10) Last Admin: 07/11/17 21:43 Dose: 0.25 mg Hydroxyzine HCl (Vistaril) 25 - 50 mg IM Q6H PRN PRN Reason: PRURITUS Hydroxyzine HCl (Vistaril) 25 - 50 mg IM Q4H PRN PRN Reason: N/V Lactated Ringer's (Ringers, Lactated) 1,000 mls @ 999 mls/hr IV BOLUS ONE Stop: 07/10/17 06:22 Last Admin: 07/10/17 04:15 Dose: 999 mls/hr Azithromycin 500 mg/ Sodium (Chloride) 250 mls @ 250 mls/hr IV ONETIME ONE Stop: 07/10/17 06:30 Last Admin: 07/10/17 10:59 Dose: 250 mls/hr Cefoxitin Sodium 2 gm/ Sodium (Chloride) 100 mls @ 200 mls/hr IV Q6H [facility] Last Admin: 07/10/17 09:00 Dose: Not Given Lactated Ringer's (Ringers, Lactated) 1,000 mls @ 150 mls/hr IV ASDIRECTED [facility] Last Admin: 07/11/17 03:12 Dose: 150 mls/hr Cefoxitin Sodium 2 gm/ Sodium (Chloride) 100 mls @ 200 mls/hr IV Q6H [facility] Last Admin: 07/11/17 03:16 Dose: 200 mls/hr Ampicillin Sodium 2 gm/ Sodium (Chloride) 100 mls @ 200 mls/hr IV ONETIME ONE Stop: 07/10/17 05:04 Last Admin: 07/10/17 04:35 Dose: 200 mls/hr Sodium Chloride (Normal Saline) 250 mls @ 100 mls/hr IV ASDIRECTED DEJAN Sodium Chloride (Normal Saline) Confirm Administered Dose 100 mls @ as directed .ROUTE .STK-MED ONE Stop: 07/11/17 02:53 Last Admin: 07/11/17 03:16 Dose: Not Given Potassium Chloride/Dextrose/Sod Cl (D5 1/2 Ns W/ 20 Meq/L Kcl) 1,000 mls @ 75 mls/hr IV Q13H DEJAN Ketorolac Tromethamine (Toradol) 30 mg IVPUSH Q8H DEJAN Stop: 07/15/17 07:54 Last Admin: 07/12/17 08:34 Dose: 30 mg Naloxone HCl (Narcan) 0.1 mg IVPUSH ONETIME PRN PRN Reason: Respiratory Depression Promethazine HCl (Phenergan) 0 mg IV Q4H PRN PRN Reason: N/V Scopolamine (Transderm-Scop) 1.5 mg TOP ONETIME DEJAN Last Admin: 07/10/17 05:00 Dose: 1.5 mg Sodium Chloride (Normal Saline) 10 ml FLUSH ASDIRECTED DEJAN Sodium Chloride (Normal Saline) 10 ml FLUSH ASDIRECTED DEJAN Sodium Chloride (Saline Flush) 10 ml FLUSH ASDIRECTED DEJAN Sodium Chloride (Saline Flush) 10 ml FLUSH ASDIRECTED DEJAN - Infant Interaction Disposition, : Not Applicable Support Person: Significant Other - Recovery Exam Fundal Tone: Firm Fundal Level: At Umbilicus Fundal Placement: Midline Lochia Amount: Small Lochia Color: Rubra/Red Perineum Description: Intact, Minimal Bruising/Swelling Episiotomy/Laceration: None Bladder Status: Voiding Urinary Elimination: Voided - Exam General: Alert, Oriented, Cooperative, No Acute Distress Lungs: Clear to Auscultation, Normal Respiratory Effort Cardiovascular: Regular Rate, Regular Rhythm GI/Abdominal Exam: Normal Bowel Sounds, Soft, Non-Tender Wound/Incisions: Dressing Dry and Intact, No Drainage. No: Erythema - Problem List & Annotations (1) Umbilical cord prolapse in labor and delivery SNOMED Code(s): 348245787 Code(s): O69.0XX0 - LABOR AND DELIVERY COMPLICATED BY PROLAPSE OF CORD, UNSP Status: Acute Current Visit: Yes Qualifiers: Fetus number: single or unspecified fetus Qualified Code(s): O69.0XX0 - Labor and delivery complicated by prolapse of cord, not applicable or unspecified (2) S/P emergency SNOMED Code(s): 019481267, 468607527 Code(s): Z98.891 - HISTORY OF UTERINE SCAR FROM PREVIOUS SURGERY Status: Acute Current Visit: Yes Onset Date: 07/10/17 - Problem List Review Problem List Initiated/Reviewed/Updated: Yes - My Orders Last 24 Hours: My Active Orders 07/11/17 16:21 Acetaminophen/HYDROcodone [[place] 325-5 MG] 1 tab PO Q4H PRN 07/12/17 10:37 Bisacodyl [Dulcolax] 10 mg RECTAL ONETIME ONE Ibuprofen [Motrin] 600 mg PO Q6H PRN Convert IV to Saline Lock [OM.PC] Routine 07/12/17 10:38 Wound Care [RC] DAILY 07/12/17 10:45 Vit/FA/Fe Fumarate [-U] 1 each PO DAILY - Assessment Assessment:: POD #2 unremarkable exam - Plan Plan:: saline lock iv d/c antibiotics d/c iv dilaudid as well as toradol po motrin, restart vitamins, dulcolax, regular diet. will start to teach pt dressing changes.
[2017-07-12] MEDS: Prenatal Multivitamin with Calcium/Folic Acid/Fe Fumarate Cap PO SCH (11:08)
[2017-07-12] MEDS ORDERED: D5 1/2 NS w/ 20 mEq/L KCl 1,000 ML IV SCH (12:30)
[2017-07-12] MEDS: Acetaminophen/HYDROcodone 325-5 MG Tab PO PRN ×2 (14:30→21:31)
[2017-07-12] MEDS ORDERED: Sertraline 50 MG Tab PO SCH (21:00)
[2017-07-13] MEDS: Acetaminophen/HYDROcodone 325-5 MG Tab PO PRN ×3 (01:29→10:48)
[2017-07-13] MEDS: Prenatal Multivitamin with Calcium/Folic Acid/Fe Fumarate Cap PO SCH (08:51)
--- NOTE | 2017-07-13 11:06 | PCM.DCSUM1 ---
Discharge Summary - Hospital Course Free Text/Narrative:: Pt admitted and had spontaneous rupture of membranes. Decelerations noted on tracing and prolapsed cord noted. Taken to OR for a Stat C section. Term born, with cord knot noted. was not able to be resuscitated. Pt's post op course was unremarkable. She did have a 2 unit transfusion. Normal bowel function did return. Diet was advanced. Her wound, which was packed open, due to fecal contamination , (hers), was noted to be healing nicely. She is demonstrating good pain control. - Discharge Data Discharge Date: 07/13/17 Discharge Disposition: Home, Self-Care 01 Condition: Good - Discharge Diagnosis/Problem(s) (1) Umbilical cord prolapse in labor and delivery SNOMED Code(s): 255540359 ICD Code: O69.0XX0 - LABOR AND DELIVERY COMPLICATED BY PROLAPSE OF CORD, UNSP Status: Acute Current Visit: Yes Qualifiers: Fetus number: single or unspecified fetus Qualified Code(s): O69.0XX0 - Labor and delivery complicated by prolapse of cord, not applicable or unspecified (2) S/P emergency SNOMED Code(s): 342443978, 807127837 ICD Code: Z98.891 - HISTORY OF UTERINE SCAR FROM PREVIOUS SURGERY Status: Acute Current Visit: Yes Onset Date: 07/10/17 - Patient Summary/Data Operative Procedure(s) Performed: emergent c section - Patient Instructions Diet: Usual Diet as Tolerated, No Alcoholic Beverages Activity: No Strenuous Activities, Rest and Relax Today Driving: Do Not Drive (until seen in follow up ) Showering/Bathing: May Shower Notify Provider of: Fever, Increased Pain, Swelling and Redness, Drainage - Discharge Plan Prescriptions/Med Rec: Acetaminophen/HYDROcodone [[place] 325-5 MG] 1 - 2 tab PO Q6H PRN #20 tab PRN Reason: Pain Docusate Sodium [Colace] 100 mg PO BID #20 capsule Ibuprofen [Motrin] 600 mg PO Q6H PRN #28 tab PRN Reason: Pain Home Medications: Home Meds Vits #93/Iron Fum/FA [ Formula Tablet] 1 each PO DAILY [History] Acetaminophen/HYDROcodone [[place] 325-5 MG] 1 - 2 tab PO Q6H PRN #20 tab [Rx] Docusate Sodium [Colace] 100 mg PO BID #20 capsule 07/13/17 [Rx] Ibuprofen [Motrin] 600 mg PO Q6H PRN #28 tab 07/13/17 [Rx] Patient Handouts: Preventing Antibiotic Resistance Referrals: Carlos Chaudhari MD [Physician] - 07/18/17 - Discharge Summary/Plan Comment DC Time >30 min.: No - Patient Data Vitals - Most Recent: Last Vital Signs Temp 36.6 C 07/13/17 08:48 Pulse 75 07/13/17 08:48 Resp 16 07/13/17 08:48 BP 95/62 07/13/17 08:48 Pulse Ox 99 07/13/17 08:48 Weight - Most Recent: 106.594 kg Med Orders - Current: Current Medications Hydrocodone Bitart/Acetaminophen ([place] 325-5 Mg) 1 tab PO Q4H PRN PRN Reason: Pain Last Admin: 07/13/17 10:48 Dose: 1 tab Naloxone HCl 0.4 mg/ Sodium (Chloride) 101 mls @ 25 mls/hr IV ASDIRECTED PRN PRN Reason: RESPIRATORY STATUS Ibuprofen (Motrin) 600 mg PO Q6H PRN PRN Reason: Pain Last Admin: 07/12/17 16:30 Dose: 600 mg Miscellaneous Information (Remove Patch) 1 ea TRDERM ASDIRECTED DEJAN Nalbuphine HCl (Nubain) 10 mg IVPUSH Q1H PRN PRN Reason: PRURITUS Naloxone HCl (Narcan) 0.1 mg IVPUSH ASDIRECTED PRN PRN Reason: RESPIRATROY STATUS Ondansetron HCl (Zofran) 4 mg IV Q4H PRN PRN Reason: Nausea/Vomiting Multivit/Folic Acid/Iron (-U) 1 each PO DAILY [facility] Last Admin: 07/13/17 08:51 Dose: 1 each Sertraline HCl (Zoloft) 50 mg PO BEDTIME DEJAN Last Admin: 07/12/17 21:32 Dose: 50 mg Discontinued Medications Ampicillin Sodium (Ampicillin) Confirm Administered Dose 2,000 mg .ROUTE .STK- MED ONE Stop: 07/10/17 04:36 Last Admin: 07/10/17 09:48 Dose: Not Given Azithromycin (Zithromax) Confirm Administered Dose 500 mg .ROUTE .STK-MED ONE Stop: 07/10/17 05:31 Last Admin: 07/10/17 11:00 Dose: Not Given Bisacodyl (Dulcolax) 10 mg RECTAL ONETIME ONE Stop: 07/12/17 10:38 Last Admin: 07/12/17 11:08 Dose: 10 mg Bupivacaine HCl/Dextrose (Marcaine 0.75% Spinal) 0.6 ml ISPINAL .STK-MED ONE Stop: 07/10/17 05:31 Carboprost Tromethamine (Hemabate Ds) 250 mcg .XX .STK-MED ONE Stop: 07/10/17 06:29 Last Admin: 07/10/17 06:28 Dose: 250 mcg Carboprost Tromethamine (Hemabate Ds) 250 mcg IM .STK-MED ONE Stop: 07/10/17 05:31 Cefoxitin Sodium (Mefoxin) Confirm Administered Dose 2 gm .ROUTE .STK-MED ONE Stop: 07/11/17 02:51 Last Admin: 07/11/17 03:15 Dose: Not Given Cefoxitin Sodium (Mefoxin) 2 gm IV Q6H DEJAN Last Admin: 07/12/17 08:44 Dose: 2 gm Dexamethasone (Dexamethasone) 4 mg IVPUSH .STK-MED ONE Stop: 07/10/17 05:31 Diphenhydramine HCl (Benadryl) 25 mg IVPUSH Q6H PRN PRN Reason: Itching or Nausea Diphenhydramine HCl (Benadryl) 25 mg IVPUSH ASDIRECTED PRN PRN Reason: SEVERE EXTRAPYRAMIDAL SYMP Diphenhydramine HCl (Benadryl) 25 mg IVPUSH ASDIRECTED PRN PRN Reason: PRURITUS Ephedrine Sulfate (Ephedrine Sulfate) 5 mg IVPUSH ASDIRECTED PRN PRN Reason: Other Ephedrine Sulfate (Ephedrine Sulfate) 5 mg IVPUSH ASDIRECTED PRN PRN Reason: HYPOTENSION Epinephrine HCl (Epinephrine 1:10,000) 0.2 mg .XX .STK-MED ONE Stop: 07/10/17 06:13 Fentanyl (Sublimaze) 15 mcg ITHECAL .STK-MED ONE Stop: 07/10/17 05:31 Fentanyl (Sublimaze) 100 mcg IV .STK-MED ONE Stop: 07/10/17 05:31 Hydromorphone HCl (Dilaudid) 0.25 mg IV Q1H PRN PRN Reason: Pain (severe 7-10) Last Admin: 07/11/17 21:43 Dose: 0.25 mg Hydroxyzine HCl (Vistaril) 25 - 50 mg IM Q6H PRN PRN Reason: PRURITUS Hydroxyzine HCl (Vistaril) 25 - 50 mg IM Q4H PRN PRN Reason: N/V Lactated Ringer's (Ringers, Lactated) 1,000 mls @ 999 mls/hr IV BOLUS ONE Stop: 07/10/17 06:22 Last Admin: 07/10/17 04:15 Dose: 999 mls/hr Azithromycin 500 mg/ Sodium (Chloride) 250 mls @ 250 mls/hr IV ONETIME ONE Stop: 07/10/17 06:30 Last Admin: 07/10/17 10:59 Dose: 250 mls/hr Cefoxitin Sodium 2 gm/ Sodium (Chloride) 100 mls @ 200 mls/hr IV Q6H [facility] Last Admin: 07/10/17 09:00 Dose: Not Given Lactated Ringer's (Ringers, Lactated) 1,000 mls @ 150 mls/hr IV ASDIRECTED [facility] Last Admin: 07/11/17 03:12 Dose: 150 mls/hr Cefoxitin Sodium 2 gm/ Sodium (Chloride) 100 mls @ 200 mls/hr IV Q6H [facility] Last Admin: 07/11/17 03:16 Dose: 200 mls/hr Ampicillin Sodium 2 gm/ Sodium (Chloride) 100 mls @ 200 mls/hr IV ONETIME ONE Stop: 07/10/17 05:04 Last Admin: 07/10/17 04:35 Dose: 200 mls/hr Sodium Chloride (Normal Saline) 250 mls @ 100 mls/hr IV ASDIRECTED [facility] Sodium Chloride (Normal Saline) Confirm Administered Dose 100 mls @ as directed .ROUTE .STK-MED ONE Stop: 07/11/17 02:53 Last Admin: 07/11/17 03:16 Dose: Not Given Potassium Chloride/Dextrose/Sod Cl (D5 1/2 Ns W/ 20 Meq/L Kcl) 1,000 mls @ 75 mls/hr IV Q7H [facility] Stop: 07/12/17 12:15 Last Admin: 07/12/17 05:00 Dose: Not Given Potassium Chloride/Dextrose/Sod Cl (D5 1/2 Ns W/ 20 Meq/L Kcl) 1,000 mls @ 75 mls/hr IV Q13H DEJAN Lactated Ringer's (Ringers, Lactated) 1,000 mls @ as directed IV .STK-MED ONE Stop: 07/10/17 05:31 Sodium Chloride (Normal Saline) 500 mls @ as directed IV .STK-MED ONE Stop: 07/10/17 05:31 Hetastarch/Sodium Chloride (Hetastarch 6% In Normal Saline) 500 mls @ as directed IV .STK-MED ONE Stop: 07/10/17 05:31 Ketorolac Tromethamine (Toradol) 30 mg IVPUSH Q8H DEJAN Stop: 07/15/17 07:54 Last Admin: 07/12/17 08:34 Dose: 30 mg Morphine Sulfate (Morphine) 7 mg IVPUSH .STK-MED ONE Stop: 07/10/17 05:31 Naloxone HCl (Narcan) 0.1 mg IVPUSH ONETIME PRN PRN Reason: Respiratory Depression Ondansetron HCl (Zofran) 4 mg IVPUSH .STK-MED ONE Stop: 07/10/17 05:31 Oxytocin (Pitocin) 20 unit IV .STK-MED ONE Stop: 07/10/17 05:31 Promethazine HCl (Phenergan) 0 mg IV Q4H PRN PRN Reason: N/V Propofol (Diprivan 20 Ml) 200 mg IV .STK-MED ONE Stop: 07/10/17 05:31 Scopolamine (Transderm-Scop) 1.5 mg TOP ONETIME DEJAN Last Admin: 07/10/17 05:00 Dose: 1.5 mg Sodium Chloride (Normal Saline) 10 ml FLUSH ASDIRECTED DEJAN Sodium Chloride (Normal Saline) 10 ml FLUSH ASDIRECTED DEJAN Sodium Chloride (Saline Flush) 10 ml FLUSH ASDIRECTED DEJAN Sodium Chloride (Saline Flush) 10 ml FLUSH ASDIRECTED DEJAN Sodium Chloride (Saline Flush) 10 ml FLUSH .STK-MED ONE Stop: 07/10/17 06:13 Succinylcholine Chloride (Quelicin) 120 mg IV .STK-MED ONE Stop: 07/10/17 05:31 *Q Meaningful Use (DIS) - VTE *Q VTE Criteria *Q: - Stroke *Q Stroke Criteria *Q: - AMI *Q AMI Criteria *Q:
== END 2017-07-13 12:29 | disposition home or self-care (01) | DRG 766 ==
LOC: FB.OBCHECK 02:14 → FB.OB 02:15 → FB.OBCHECK 02:20
PROVIDERS: ADMIT Family Medicine; ATTEND Family Medicine
PROC: 10D00Z1 Extraction of Products of Conception, Low, Open Approach (ICD-10-PCS; principal; 2017-07-10)
PROC: 30233N1 Transfusion of Nonautologous Red Blood Cells into Peripheral Vein, Percutaneous Approach (ICD-10-PCS; 2017-07-10)
DX: O69.0XX0 Labor and delivery complicated by prolapse of cord, not applicable or unspecified (principal); O99.824 Streptococcus B carrier state complicating childbirth; O76 Abnormality in fetal heart rate and rhythm complicating labor and delivery; O77.0 Labor and delivery complicated by meconium in amniotic fluid; O69.2XX0 Labor and delivery complicated by other cord entanglement, with compression, not applicable or unspecified; Z3A.00 Weeks of gestation of pregnancy not specified; Z37.1 Single stillbirth; O75.89 Other specified complications of labor and delivery; D64.9 Anemia, unspecified
CPT/HCPCS: 36415; 36430; 72170; 80048; 85018; 85025; 86850; 86900; 86901; 86920; 86922; A9270-GY; J0171; J0290; J0330; J0456; J0694; J1100; J1170; J1885; J2270; J2405; J2590; J2704; J3010; J3480; J7030; J7040; J7050; J7120; P9016

== ENCOUNTER 2017-10-05 08:56 | Day surgery (SDC) | payer MEDICAID ==
[2017-10-05] MEDS ORDERED: Sodium Chloride 0.9% 10 ML Syringe FLUSH PRN (09:00)
[2017-10-05] MEDS: Lactated Ringers 1,000 ML IV SCH (09:59)
[2017-10-05] MEDS: Lidocaine 1% with EPINEPHrine 1:100,000 20 ML MDV INFILT ONE (11:24)
[2017-10-05] MEDS: Bupivacaine 0.5% 30 ML SDV INFILT ONE (11:24)
[2017-10-05] MEDS ORDERED: Propofol 200 MG/20 ML SDV IV ONE ×2 (11:30)
[2017-10-05] MEDS ORDERED: Ondansetron 4 MG/2 ML SDV IVPUSH ONE (11:30)
[2017-10-05] MEDS ORDERED: Midazolam 1 MG/ML 2 ML SDV IV ONE (11:30)
[2017-10-05] MEDS ORDERED: fentaNYL 100 MCG/2 ML SDV IV ONE (11:30)
[2017-10-05] MEDS ORDERED: Ketorolac 30 MG/ML SDV IVPUSH ONE (11:30)
--- NOTE | 2017-10-05 11:50 | PCM.OPNOTE ---
- General Post-Op/Procedure Note Date of Surgery/Procedure: 10/05/17 Operative Procedure(s): wound debridement and closure Findings: 12 cm x 1 cm area of chronic granulation tissue involving the skin wound closed in two layers Pre Op Diagnosis: chronic wound disruption Post-Op Diagnosis: Same Anesthesia Technique: Local (10 ml 1 % lido with epi/0.5% buvipicaine), MAC Primary Surgeon: Carlos Chaudhari Anesthesia Provider: Toni Salgado Pathology: none Complications: None Condition: Good Free Text/Narrative:: see dictation
--- NOTE | 2017-10-05 13:30 | OR ---
DATE OF OPERATION: 10/05/2017 SURGEON: Carlos Chaudhari MD PROCEDURES PERFORMED: Closure and debridement of an abdominal wound. PREOPERATIVE DIAGNOSIS: Chronic wound disruption. POSTOPERATIVE DIAGNOSIS: Chronic wound disruption. INDICATIONS FOR PROCEDURE: This is a 22-year-old white female who is status post an emergent section. Her wound was allowed to heal by delayed primary closure. She developed some chronic granulation tissue and separation of the skin. This was excised once in the clinic and closed with good approximation. However, she presents approximately 4 months later with the wound again having broken down and open. She therefore was offered and accepted excision of this tissue and formal closure in the operating room. DESCRIPTION OF PROCEDURE: After an excellent IV sedation was administered, 10 mL of a 1:1 mixture of 1% lidocaine with epinephrine and 0.5% bupivacaine was used to infiltrate the area, which was approximately 12 x 1 cm. Using an elliptical excision, the granulation tissue and the skin edge were excised, and this incision was carried down into the subcu fat, down to the fascia. The fat was then reapproximated with a running 3-0 Vicryl and a running subcu 3-0 Vicryl was used to close the skin. Steri-Strips were applied. The patient was taken to Recovery in a good condition. /[id number] /MODL
== END 2017-10-05 13:16 | disposition home or self-care (01) ==
LOC: FB.SDS 08:56
PROVIDERS: ATTEND Surgery
DX: T81.31XD Disruption of external operation (surgical) wound, not elsewhere classified, subsequent encounter (principal); F17.210 Nicotine dependence, cigarettes, uncomplicated; G89.29 Other chronic pain; M54.5 Low back pain; Z79.899 Other long term (current) drug therapy
CPT/HCPCS: 17999; 81025; J1885; J2250; J2405; J2704; J3010; J7120

== ENCOUNTER 2019-02-18 10:19 | Emergency (ER) | payer MEDICAID ==
[2019-02-18] MEDS ORDERED: Tetracaine HCl/PF 0.5% 4 ML Bottle EYERT ONE (10:48)
--- NOTE | 2019-02-18 10:48 | EDM.PDOC ---
ED HPI GENERAL MEDICAL PROBLEM - General Chief Complaint: ENT Problem Stated Complaint: CAN'T GET RIGHT CONTACT OUT Time Seen by Provider: 02/18/19 10:45 Source of Information: Reports: Patient History Limitations: Reports: No Limitations - History of Present Illness INITIAL COMMENTS - FREE TEXT/NARRATIVE: 23-year-old female who reports at about 10 PM last night she was trying to take the contact out of her right eye and she was unable to get the contact out she felt and she tried multiple times after that and still had some irritation feeling in her right eye and this morning she continues to have irritation in her right eye with some matting of the eyelashes and some redness of the eye and she presents for evaluation of possible retained contact in her right eye. She reports the pain is a 2/10. It is a burning and stinging pain. No nausea or vomiting. No fevers or chills. She had a cold about a month ago and she still has mild residual cough. No difficulty breathing. There are no other associated signs or symptoms. There are no other modifying factors. 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 Other [employer] History: II PARA I STILLBORN I Musculoskeletal History: Reports: Back Pain, Chronic Psychiatric History: Reports: Depression Endocrine/Metabolic History: Reports: Obesity/BMI 30+ - Infectious Disease History Infectious Disease History: Reports: Chicken Pox - Past Surgical History HEENT Surgical History: Reports: Oral Surgery (Was a tooth extraction) Female Surgical History: Reports: Section, Other (See Below) (I&D of incision) Social & Family History - Tobacco Use Smoking Status *Q: Current Every Day Smoker - Caffeine Use Caffeine Use: Reports: Coffee - Living Situation & Occupation Occupation: Employed (Works at the [employer] and also works for [employer]) ED ROS ENT - Review of Systems Review Of Systems: See Below Constitutional: Reports: No Symptoms HEENT: Reports: Contact Lenses, Eye Discharge, Eye Pain, Other (Questionable retained contact) Respiratory: Reports: Cough Cardiovascular: Reports: No Symptoms Endocrine: Reports: No Symptoms GI/Abdominal: Reports: No Symptoms : Reports: No Symptoms Musculoskeletal: Reports: No Symptoms Skin: Reports: No Symptoms Neurological: Reports: No Symptoms Hematologic/Lymphatic: Reports: No Symptoms Immunologic: Reports: No Symptoms ED EXAM, ENT - Physical Exam Exam: See Below Exam Limited By: No Limitations General Appearance: Alert, WD/WN, Mild Distress Eye Exam: Right Eye: Conjunctival Injection, Corneal Abrasion, Foreign Body ( Eyelash was removed from under the upper lid of the right eye), Bilateral Eye: EOMI, PERRL, Other (Visual acuity was 20/50 in both eyes) Ears: Normal External Exam, Hearing Grossly Normal Head: Atraumatic, Normocephalic Neck: Normal Inspection, Supple, Non-Tender, Full Range of Motion Respiratory/Chest: No Respiratory Distress, Lungs Clear, Normal Breath Sounds, No Accessory Muscle Use Cardiovascular: Normal Peripheral Pulses, Regular Rate, Rhythm, No JVD GI/Abdominal: Normal Bowel Sounds, Soft, Non-Tender, No Mass Back: Normal Inspection Extremities: Normal Inspection, Normal Range of Motion, No Pedal Edema, Normal Capillary Refill Neurological: Alert, Oriented, CN II-XII Intact, Normal Cognition, No Motor/ Sensory Deficits Skin: Warm, Dry, Intact, Normal Color, No Rash ED ENT PROCEDURES - Foreign Body Removal Consent Obtained: Patient Performing Doctor:: Elan Sutton Anesthesia Type: Other (see below) (Topical anesthetic with tetracaine to the right eye) Findings: No contact lens found. There was an eyelash under the lid that was removed. There was fluroscein uptake in a diffuse fashion. Complications: No Comments: The right eye was copiously irrigated with eyewash solution by the nursing staff. Course - Vital Signs Last Recorded V/S: Last Vital Signs Temp 36.7 C 10/20/19 10:19 Pulse 64 02/18/19 10:19 Resp 18 02/18/19 10:19 BP 113/66 02/18/19 10:19 Pulse Ox 99 02/18/19 10:19 - Orders/Labs/Meds Meds: Medications Discontinued Medications Generic Name Dose Route Start Last Admin Trade Name Lynette PRN Reason Stop Dose Admin Tetracaine HCl 1 ml 02/18/19 10:48 Tetracaine 0.5% Steri-Unit Patrizia EYERT 02/18/19 10:49 ASDIRECTED ONE - Re-Assessments/Exams Free Text/Narrative Re-Assessment/Exam: 02/18/19 11:13: Exam of the right eye revealed no retained contact lens. She did have an eyelash under the upper eyelid of the right eye. Was removed. Does have corneal abrasion to the right eye. I will place the patient on erythromycin eye ointment to the right eye 4 times a day for the next 5 days he is to keep her follow-up appointment with the eye doctor week and she should not use her contacts for at least 7 days. Departure - Departure Time of Disposition: 11:15 Disposition: Home, Self-Care 01 Condition: Good (Improved) Clinical Impression: Corneal abrasion of right eye due to contact lens Foreign body of right external eye Qualifiers: Encounter type: initial encounter Qualified Code(s): T15.91XA - Foreign body on external eye, part unspecified, right eye, initial encounter - Discharge Information Prescriptions: Erythromycin Base [Erythromycin 0.5% Ophth Oint] 1 applic EYERT QID 5 Days #1 tube Instructions: Eye Foreign Body, [id number] Referrals: Cricket Rosa MD [Primary Care Provider] - Forms: ED Department Discharge Additional Instructions: You did not have a retained contact in your right eye. You did have an eyelash underneath the upper eyelid of your right eye that was removed. You also have an abrasion of the cornea of your right eye. Apply the erythromycin eye ointment to your right eye times a day for the next 5 days. Keep your appointment with your eye doctor this coming week. You may also apply artificial tears to your right I frequently during the day as needed. Back to the emergency department for worsening vision, unrelenting vomiting or any other concerning sign or symptom.
== END 2019-02-18 11:30 | disposition home or self-care (01) ==
LOC: FB.ED 10:19
DX: T15.91XA Foreign body on external eye, part unspecified, right eye, initial encounter (principal); E66.9 Obesity, unspecified; F17.200 Nicotine dependence, unspecified, uncomplicated; Z68.41 Body mass index [BMI] 40.0-44.9, adult
CPT/HCPCS: 99283